=== PATIENT | male | born 1985 | race Caucasian/White ===

== ENCOUNTER 2022-03-09 07:53 | Emergency (ER) | payer OTHER, SELFPAY ==
[2022-03-09 08:00] VITALS: BP 103/68; PULSE 60; RESP 18; TEMP 36.6; O2SAT 100; BMI 28.6
--- NOTE | 2022-03-09 08:32 | ED.GENADULT ---
HPI - General Adult General Chief complaint: General Medical Stated complaint: Rash Time Seen by Provider: 03/09/22 08:32 Source: patient Mode of arrival: ambulatory Limitations: no limitations History of Present Illness HPI narrative: 36 y/o male presents to the ER with an itchy rash that started 3 days ago. He states it started on his right wrist after he went fishing and has now spread to bilateral arms and his lower abdomen and inguinal area. He states the the rash is red and itchy. Mild relief with Benadryl. He reports an allergy to poison devan and wanted to make sure that this was not poison devan. He denies any known contact with poison devan but the rash is itchy similar to that. MD complaint: rash Onset (ago): day(s) (2) Location: pelvis, left, right, upper extremity and lower extremity Radiation: non-radiation Severity: moderate Severity scale (1-10): 6 Quality: other (Itching) Pain Consistency: intermittent Relieving factors: cold therapy and medication Exacerbating factors: none Associated symptoms: denies other symptoms Treatments prior to arrival: none Related Data Previous Rx's Medication Instructions Recorded prednisone 50 mg tablet 50 mg PO DAILY #6 tab 03/09/22 Allergies Allergy/AdvReac Type Severity Reaction Status Date / Time bee pollen [bee stings] Allergy Anaphylaxis Verified 03/09/22 07:59 Opioids - Morphine Analogues AdvReac Unknown Verified 03/09/22 07:59 Review of Systems Review of Systems: Constitutional: No Fever, No Chills ENT/Mouth: No sore throat, No Rhinorrhea Eyes: No Eye Pain, No Swelling, No Redness Cardiovascular: No Chest Pain, No SOB Gastrointestinal: No Nausea, No Vomiting, No abdominal Pain Musculoskeletal: No joint pain, No Myalgias Skin: No Skin Lesions, + rash Neuro: No Weakness, No Numbness, No Dizziness, No Headache Heme/Lymph: No Bruising, No Lymphadenopathy PMFSH Past Medical History Medical History (Updated 03/09/22 @ 08:41 by DEBRA Sandoval) MRSA (methicillin resistant Staphylococcus aureus) infection Ringworm Surgical History S/P appendectomy Social History Social History Advance Directives: No Advance Directives Information Provided: No Physical Exam ED Vital Signs: Vital Signs - 24 hr 03/09/22 08:00 Temperature 97.8 F Pulse Rate 60 Respiratory Rate 18 Blood Pressure 103/68 Pulse Oximetry 100 BMI result Body Mass Index 28.6 Appearance: Alert. Oriented X3. No acute distress. ENT: Pharynx normal. No rash on the face Neck: Normal inspection. Neck supple. CVS: Normal heart rate and rhythm. Pulses normal. Respiratory: No respiratory distress. Breath sounds normal. Abdomen: Soft and nontender. +BS x4 Skin: Skin warm and dry. Normal skin color. Normal skin turgor. There is a maculopapular erythematous, pruritic rash located on the ventral aspect of the bilateral upper extremities as well as the lower abdomen, inguinal area and inner thighs. No open wounds, no drainage, no vesicles. No surrounding erythema or warmth to suggest infection. Extremities: No lower extremity edema. Neuro: Oriented X 3. Grossly normal number nonfocal. Course Course Course Narrative: 36-year-old male presenting to the ER with a pruritic rash for the last 3 days. Started on the right wrist and spread to the bilateral arms and legs. Unclear etiology denies any contact with poison devan. No fluid-filled vesicles on exam. Seems to be a contact dermatitis and will treat with prednisone and antihistamines. Patient agrees with plan. He will follow-up with This week if no improvement. The able for DC home. Discharge Plan Discharge Clinical Impression: Contact dermatitis Patient Disposition: Home, Self-Care Instructions: Contact Dermatitis (DC) Additional Instructions: Start taking the prescribed prednisone tomorrow, your given the 1st dose today in the emergency room. Recommend [id number] Benadryl 25-50 mg every 6-8 hours as needed for itching and rash. You can use [id number] topical Benadryl and topical hydrocortisone to help with itching as well. Follow-up with your doctor as needed. If you develop new or worsening symptoms call 911 or come back to the ER for further evaluation. Prescriptions: New prednisone 50 mg tablet 50 mg PO DAILY Qty: 6 0RF Interventions: ED Discharge Assessment Last Done: 03/09/22 08:51 Discharge Date/Time: 03/09/22 08:52
[2022-03-09] MEDS: predniSONE 20 MG TABLET 60 MG PO (08:46)
== END 2022-03-09 08:52 | disposition home or self-care (01) ==
PROVIDERS: Emergency Provider Emergency Medicine; PCP Internal Medicine
DX: L23.9 Allergic contact dermatitis, unspecified cause (principal); R21 Rash and other nonspecific skin eruption
CPT/HCPCS: 99283